=== PATIENT | female | born 1980 | race Caucasian/White ===

== ENCOUNTER 2022-01-03 09:33 | Outpatient (NON) | payer BC, SELFPAY ==
[2022-01-03 11:12] LABS: Vancomycin Trough 15.3 ug/mL (10.0-15.0)
== END 2022-01-03 09:34 | disposition home or self-care (01) ==
LOC: CHSLAB 09:36
PROVIDERS: Visit Provider Family Medicine
DX: A49.02 Methicillin resistant Staphylococcus aureus infection, unspecified site (principal)
CPT/HCPCS: 36415; 80202